=== PATIENT | male | born 1950 | race Caucasian/White ===

== ENCOUNTER 2017-12-23 07:42 | Day surgery (SDC) | payer MEDICARE, OTHER, SELFPAY ==
--- NOTE | 2017-12-20 14:00 | EKG12_ITS ---
Test Reason : PRE-OP Blood Pressure : / mmHG Vent. Rate : 071 BPM Atrial Rate : 071 BPM P-R Int : 142 ms QRS Dur : 086 ms QT Int : 364 ms P-R-T Axes : 057 035 040 degrees QTc Int : 395 ms Normal sinus rhythm Normal ECG Confirmed by BAHMAN DILLON, BRITT ([id number]), news editor CHERY GHOTRA ([id number]) on 12/23/2017 12:03:04 PM Referred By: Ranjit Clark Confirmed By:BRITT RUGGIERO MD
[2017-12-20 14:11] LABS: Hematocrit 41.7 % (40-54); Hemoglobin 14.1 g/dl (13.0-16.5); Mean Corp Hgb Conc 33.8 g/gl (32-36); Mean Corpuscular Hgb 32.6 pg (27.0-32.0); Mean Corpuscular Volume 96.5 fL (80-94); Mean Platelet Vol. 9.2 fl (6.2-12.0); Platelet Count 257 K/mm3 (150-450); RBC Distribution Width CV 12.7 % (11.6-14.6); RBC Distribution Width SD 44.4 fl (35.1-43.9); Red Blood Count 4.32 M/mm3 (4.6-6.2); White Blood Count 5.3 K/mm3 (4.4-11.0)
[2017-12-20 14:13] LABS: Scan Indicated on CBC? Y/N NO
[2017-12-20 14:35] LABS: Anion Gap 10 (5-15); BUN 14 mg/dL (7-18); BUN/Creat Ratio 18.3 RATIO (10-20); Calcium,Total 9.1 mg/dL (8.5-10.1); Chloride 104 mmol/L (98-107); Creatinine, Serum 0.76 mg/dL (0.70-1.30); EST Glomerular Filtration Rate 108 mL/min (>60); Est Glom Filt Rate - Afr Amer 130 mL/min (>60); Glucose 121 mg/dL (74-106); Potassium 4.2 mmol/L (3.5-5.1); Sodium Level 142 mmol/L (136-145)
[2017-12-23] VITALS (8 sets, daily range): BP systolic 105–136; BP diastolic 67–91; PULSE 72–108; RESP 16–18; TEMP 36.3–37.1; O2SAT 84–100; BMI 22.9
--- NOTE | 2017-12-23 09:43 | PCM.HP.STD ---
Problem List (1) Umbilical hernia Status: Acute Qualifiers: Obstruction and gangrene presence: without obstruction or gangrene (2) Left inguinal hernia Status: Acute History of Present Illness Date of Admission: 12/23/17 The patient is a 67 year old M who I saw in the office on November 10, 2017. At that point he presented to me concerned about 2 different hernias. An umbilical hernia and a left inguinal hernia. 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 Having achieved that he is now returning to have his hernias repaired. He has had no change in his health. Past Medical History Medical History: Medical History (Last Updated 11/10/17 @ 14:10 by Wilma Ball) Left inguinal hernia (Acute) K40.90 Umbilical hernia (Acute) K42.9 Anxiety F41.9 Arthritis M19.90 Hyperlipidemia E78.5 Allergies adhesive tape Allergy (Verified 12/16/17 12:57) Rash Home Medications: Ambulatory Orders Medication Instructions Recorded rosuvastatin 10 mg tablet 10 mg PO QDAY 11/10/17 Benazepril HCl [Lotensin] 10 mg PO DAILY 12/16/17 Cholecalciferol (Vitamin D3) 1,000 unit PO DAILY 12/16/17 [Vitamin D3] Escitalopram Oxalate [Lexapro] 10 mg PO DAILY 12/16/17 Multivitamin [Multiple Vitamins] 1 each PO DAILY 12/16/17 Sildenafil Citrate [Viagra] 50 mg PO PRN PRN 12/16/17 Surgical History: Surgical History (Last Reviewed 11/10/17 @ 14:08 by Wilma Ball) H/O carpal tunnel repair Z98.890 H/O colonoscopy Z98.890 H/O hemorrhoidectomy Z98.890 Hand fracture, left S62.92XA Smoking Status: Former smoker Tobacco Use: Pipe Review of Systems Constitutional: Denies: Anorexia Eyes: Denies: Blurred vision HEENT: Denies: Difficulty Hearing Cardiovascular: Denies: Chest Pain Respiratory: Denies: Cough Gastrointestinal: Denies: Abdominal Pain Genitourinary: Denies: Dysuria Musculoskeletal: Denies: Arm Pain Skin: Reports: - - Papular skin rash Neurological: Denies: Balance problems Psychiatric: Denies: Anxiety Endocrine: Denies: Change in Body Habitus Hematologic/ Lymphatic: Denies: Adenopathy VTE Information - Inpt Only VTE Present on Admission: No - Physical Exam General: Alert, Oriented x3, Cooperative HEENT: Atraumatic Oral: Moist Mucosa Neck: Supple Lungs: Clear to auscultation Cardiovascular: Regular rate, Regular Rhythm Abdomen: Bowel Sounds Present, Hernia - Umbilical hernia at the superior aspect the umbilicus partially reducible, - - Left inguinal hernia with testicles descended. Reducible. Right groin has a very slight give with straining. Left groin has diffuse fullness and findings consistent with a sliding hernia Extremities: No clubbing Skin: - - Punctate erythematous rash of the abdomen torso. Markedly diminished in appearance Musculoskeletal: No Tenderness to Palpation of Joints or Extremities Lymphatic: No Cervical, Supraclavicular, or Inguinal Adenopathy Neurological: Cranial nerves II-XII grossly intact Psych/Mental Status: Normal Affect Vital Signs Temp Pulse Resp BP Pulse Ox 98.8 F 74 16 115/83 H 98 12/23/17 08:01 12/23/17 08:01 12/23/17 08:01 12/23/17 08:01 12/23/17 08:01 Oxygen Delivery Method Room Air Weight: 142 lb 3.17 oz Body Mass Index (BMI) 22.9 Assessment/Plan All Active Problems (Last Updated 11/10/17 @ 14:10 by Wilma Ball) Left inguinal hernia (Acute) Umbilical hernia (Acute) I am recommending for the patient a laparoscopic left inguinal herniorrhaphy with mesh. I anticipate an umbilical herniorrhaphy subsequent to the dissection at that site as well. I may utilize mesh at the umbilical site as well. He has had an opportunity to ask and have questions answered. His skin disorder is significantly improved since his office visit and I believe that it is appropriate to his proceed as indicated. He has had an opportunity to ask and have questions answered. We will proceed as noted. Ranjit Clark M.D., F.A.C.S.
--- NOTE | 2017-12-23 09:50 | HERN_PTH ---
PATIENT: ASHLEIGH SUE LOC: [facility] U#:[id number] AGE/SX: 67/M ROOM: RE12/23/[address]: Dr. Ranjit Clark MD : 1950 BED: DIS: 12/23/2017 SPEC #: [id number] RECD: 12/23/17 12:47 STATUS: MILA BENIGNO #: [id number] BEE: 12/23/17 09:[address]: Ranjit Clark DEPT: SURGICAL PATHOLOGY RECD BY: Jace Myers ENTERED: 12/23/17 14:55 SP TYPE: Hernia OTHR DR: Dr. Ronn Shelton DO Tissues: HERNIA Procedures: Surgery Specimen Level II HEADER OPERATION: Laparoscopic left inguinal hernia repair with mesh, umbilical hernia PRE-OP DIAGNOSIS: Left inguinal hernia; umbilical hernia TISSUE SUBMITTED: Umbilical sac and contents MICROSCOPIC DIAGNOSIS Umbilical sac and contents: Mesothelial-lined adipose tissue and fibroconnective tissue consistent with hernia sac and contents. SJ:esvin 12/24/17 MICROSCOPIC DESCRIPTION Slides are reviewed. GROSS DESCRIPTION Received in fixative is one container labeled with the patient's name and designated umbilical sac and contents. The specimen consists of three variable size pieces of yellow adipose tissue measuring in aggregate 4 x 3.5 x 2 cm. Sections reveal yellow adipose cut surfaces without areas of hemorrhage, necrosis or cystic degeneration. No mass lesion is identified. Table Saw Operator sections are submitted in one cassette. / CADENCE:esvin 12/23/17 TC:5 CPT: 91134
--- NOTE | 2017-12-23 10:11 | DCINST_ITS ---
Discharge Diet: Light diet - advance as tolerated - if you have questions about your diet instructions, please talk to you doctor. Discharge Activity: May Not Drive - for 1 week or while taking narcotic pain medicine. May shower in (days): 1 Lifting Restrictions: 10 pounds Call your doctor if your incision/area has: Continuous Slow Oozing, Sudden Increased Bleeding, Increased Pain/ Swelling, Increased Redness, Foul Smelling Discharge Call your doctor if you observe: Fever of 101 or Higher Suture Line Care: Avoid Pulling/Pushing, Avoid Pinching/Bending Additional Dressing/Incision Instructions:: Change or remove dressing in 4 days. Leave steri-strips in place for 1 week. Allergies/Adverse Reactions: Allergies adhesive tape Allergy (Verified 12/16/17 12:57) Rash Medications to take at Discharge rosuvastatin 10 mg tablet 10 mg PO QDAY 11/10/17 Benazepril HCl [Lotensin] 10 mg PO DAILY 12/16/17 Cholecalciferol (Vitamin D3) [Vitamin D3] 1,000 unit PO DAILY 12/16/17 Escitalopram Oxalate [Lexapro] 10 mg PO DAILY 12/16/17 Multivitamin [Multiple Vitamins] 1 each PO DAILY 12/16/17 Sildenafil Citrate [Viagra] 50 mg PO PRN PRN 12/16/17 Hydrocodone Bitart/Apap 5-325 [Ballwin 5MG-325MG] 1 tablet PO Q6H PRN PRN 3 Days # 10 tablet 12/23/17 The following prescriptions were given: Hydrocodone Bitart/Apap 5-325 [Ballwin 5MG-325MG] 1 tablet PO Q6H PRN PRN 3 Days # 10 tablet PRN Reason: Pain Primary Care Physician: Ronn Shelton DO [Primary Care Provider] - Test Results: Test results from this visit will be discussed in further detail at your follow- up appointment, if applicable. Please Follow Up With: Ranjit Clark MD - [phone] When: Call to make an appointment to be seen in about 10 days.
[2017-12-23] MEDS: Bupivacaine Mpf 0.5% 30 ML VIAL OPERA.SITE (11:19)
--- NOTE | 2017-12-23 11:21 | PCM.OPRPT ---
Problem List (1) Umbilical hernia Status: Acute Qualifiers: Obstruction and gangrene presence: without obstruction or gangrene (2) Left inguinal hernia Status: Acute Report of Operation Date of Procedure: 12/23/17 Pre-Operative Diagnosis: Left inguinal hernia and cord lipoma. Umbilical hernia Post-Operative Diagnosis: Indirect left inguinal hernia with cord lipoma. Incarcerated umbilical hernia Surgery/Procedure Performed:: Laparoscopic left inguinal herniorrhaphy. Umbilical herniorrhaphy with 4.3 cm ventral X mesh. The Bard 3D max mesh was lot number [id number] reference #[id number] expiry date 09/18/2022. The ventral X mesh is reference #[id number]. Lot number [id number] CPT 2111. Expiry date 10/19/2019. The secure strap was lot number [id number] with expiry date 09/11/2019 Description of Surgical Findings:: Time out and informed consent was obtained. 67-year-old gentleman was taken out from placement table underwent general endotracheal intubation anesthesia. Ancef 2 g were given intravenously preoperatively. The abdomen was sterilely prepped and draped. 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 0.5% Marcaine was used as a local anesthetic throughout the procedure. A total 21 cc was used. Skin sites were generally pre-anesthetized. A curvilinear incision was made in the inferior aspect of the umbilicus. Sharp dissection carried down through the substance tissue. The umbilical skin was carefully dissected free from the incarcerated preperitoneal fat and umbilical hernia sac. The sac and contents were sharply transected with electrocautery. Holding sutures of 0 Vicryl placed. A 10 mm trocar inserted. 10 lap scope inserted. No evidence of any trocar injuries. Under direct visitation five-minute ports are placed in the right left lower quadrant. The abdomen was rapidly inspected. The right groin appear to be solid and intact. There was evidence of an indirect hernia on the left. Stomach was somewhat insufflated anesthesia was made aware. Superficial inspection of the bowel unremarkable. A ileal inguinal nerve block was performed with Marcaine on the left. The peritoneum was incised carried medially. The peritoneum was completely dissected free. A moderate size cord lipoma was identified it was dissected free and completely delivered from the defect. The direct indirect and femoral area was nicely dissected. A large left Bard 3D max mesh was placed into position and it fit excellently into position. It was secured superiorly and medially with secure strap. Excellent positioning was achieved. The peritoneum was then reapproximated self tube with the secure strap with good obliteration to the mesh. The abdomen was allowed to deflate of the CO2. A 4.3 cm ventral X mesh was placed at the umbilicus. The tails were secured with interrupted 0 Nurolon. The fascia was approximated transversely with interrupted 0 Nurolon. Then the abdomen was reinsufflated. One edge of the mesh was secured with secure strap to assure a flat lie. Good positioning was achieved. The abdomen was allowed to deflate of the CO2. Skin edges were approximated up to 4 Monocryl subdermal stitches. Steri-Strips Telfa and OpSite dressings applied. Sponge and instrument and needle counts were reported to the surgeon be correct. Specimen includes the umbilical hernia sac and contents. Drains none. Blood loss minimal. The patient was taken to the recovery area in satisfactory condition without apparent complication. Ranjit Clark M.D., F.A.C.S. Type of Anesthesia:: General Anesthesiologist: Brice Smith
--- NOTE | 2017-12-23 11:26 | OP.PCM_ITS ---
Problem List (1) Umbilical hernia Status: Acute Qualifiers: Obstruction and gangrene presence: without obstruction or gangrene (2) Left inguinal hernia Status: Acute Report of Operation Date of Procedure: 12/23/17 Pre-Operative Diagnosis: Left inguinal hernia and cord lipoma. Umbilical hernia Post-Operative Diagnosis: Indirect left inguinal hernia with cord lipoma. Incarcerated umbilical hernia Surgery/Procedure Performed:: Laparoscopic left inguinal herniorrhaphy. Umbilical herniorrhaphy with 4.3 cm ventral X mesh. The Bard 3D max mesh was lot number [id number] reference #[id number] expiry date 09/18/2022. The ventral X mesh is reference #[id number]. Lot number HU CPT 2111. Expiry date 10/19/2019. The secure strap was lot number [id number] with expiry date 09/11/2019 Description of Surgical Findings:: Time out and informed consent was obtained. 67-year-old gentleman was taken out from placement table underwent general endotracheal intubation anesthesia. Ancef 2 g were given intravenously preoperatively. The abdomen was sterilely prepped and draped. Ioban draping was utilized as well because of the patient' s dermatitis Grovers disease. 0.5% Marcaine was used as a local anesthetic throughout the procedure. A total 21 cc was used. Skin sites were generally pre-anesthetized. A curvilinear incision was made in the inferior aspect of the umbilicus. Sharp dissection carried down through the substance tissue. The umbilical skin was carefully dissected free from the incarcerated preperitoneal fat and umbilical hernia sac. The sac and contents were sharply transected with electrocautery. Holding sutures of 0 Vicryl placed. A 10 mm trocar inserted. 10 lap scope inserted. No evidence of any trocar injuries. Under direct visitation five-minute ports are placed in the right left lower quadrant. The abdomen was rapidly inspected. The right groin appear to be solid and intact. There was evidence of an indirect hernia on the left. Stomach was somewhat insufflated anesthesia was made aware. Superficial inspection of the bowel unremarkable. A ileal inguinal nerve block was performed with Marcaine on the left. The peritoneum was incised carried medially. The peritoneum was completely dissected free. A moderate size cord lipoma was identified it was dissected free and completely delivered from the defect. The direct indirect and femoral area was nicely dissected. A large left Bard 3D max mesh was placed into position and it fit excellently into position. It was secured superiorly and medially with secure strap. Excellent positioning was achieved. The peritoneum was then reapproximated self tube with the secure strap with good obliteration to the mesh. The abdomen was allowed to deflate of the CO2. A 4.3 cm ventral X mesh was placed at the umbilicus. The tails were secured with interrupted 0 Nurolon. The fascia was approximated transversely with interrupted 0 Nurolon. Then the abdomen was reinsufflated. One edge of the mesh was secured with secure strap to assure a flat lie. Good positioning was achieved. The abdomen was allowed to deflate of the CO2. Skin edges were approximated up to 4 Monocryl subdermal stitches. Steri-Strips Telfa and OpSite dressings applied. Sponge and instrument and needle counts were reported to the surgeon be correct. Specimen includes the umbilical hernia sac and contents. Drains none. Blood loss minimal. The patient was taken to the recovery area in satisfactory condition without apparent complication. Ranjit Clark M.D., F.A.C.S. Type of Anesthesia:: General Anesthesiologist: Brice Smith
[2017-12-23 12:51] LABS: Bedside Glucose 94 mg/dL (70-110)
[2017-12-23] MEDS: HYDROcodone Bitartrate/Apap 5/325 Tablet PO ×2 (13:46→14:36)
== END 2017-12-23 15:24 | disposition home or self-care (01) ==
LOC: SDC 07:43 → AC 07:43
PROVIDERS: Family Provider Student in an Organized Health Care Education/Training Program; PCP Student in an Organized Health Care Education/Training Program; Visit Provider Surgery
PROC: (CPT 49650; principal; 2017-12-23 09:30)
DX: K40.90 Unilateral inguinal hernia, without obstruction or gangrene, not specified as recurrent (principal); D17.6 Benign lipomatous neoplasm of spermatic cord; K42.0 Umbilical hernia with obstruction, without gangrene; I10 Essential (primary) hypertension; E78.5 Hyperlipidemia, unspecified; F41.9 Anxiety disorder, unspecified; M19.90 Unspecified osteoarthritis, unspecified site; L11.1 Transient acantholytic dermatosis [Grover]; Z87.891 Personal history of nicotine dependence; Z79.899 Other long term (current) drug therapy
CPT/HCPCS: 49650; 49653; 36415; 80048; 82962; 85027; 88302; 93005; J7120; C1781

== ENCOUNTER 2024-10-17 13:43 | Emergency (ER) | payer MEDICARE, OTHER, SELFPAY ==
[2024-10-17 13:45] VITALS: BP 114/67; PULSE 68; RESP 16; TEMP 36.9; O2SAT 100; BMI 23.3
[2024-10-17 14:57] LABS: Absolute Neutrophil Count 3.4 X10^3/uL (2.0-7.7); Basophil# 0.03 X10^3/uL; Basophil% 0.6 % (0-1); Eosinophil# 0.07 X10^3/uL; Eosinophils% 1.4 % (0-5); Hematocrit 24.5 % (40-54); Hemoglobin 7.3 g/dL (13.0-16.5); Lymphocyte % 20.5 % (19-41); Mean Corp Hgb Conc 29.8 g/dL (32-36); Mean Corpuscular Volume 73.8 fL (80-94); Mean Platelet Vol. 10.3 fl (6.2-12.0); Monocyte# 0.42 X10^3/uL; Monocyte% 8.6 % (0-10); NRBC Flagged by Analyzer 0 % (0-5); Neutrophil # 3.35 X10^3/uL (2.7-7.7); Neutrophil % 68.7 % (47-70); Platelet Count 321 K/mm3 (150-450); RBC Distribution Width CV 18.2 % (11.6-14.6); RBC Distribution Width SD 48.5 fl (35.1-43.9); Red Blood Count 3.32 M/mm3 (4.6-6.2); White Blood Count 4.9 K/mm3 (4.4-11.0)
--- NOTE | 2024-10-17 15:07 | EDS_ITS ---
HPI History of Present Illness Chief Complaint: Abn Labs Informant: patient Narrative Narrative: Patient is a 74-year-old male presenting to the ER for evaluation of low hemoglobin level on routine outpatient labs and was told he needs a blood transfusion. Patient denies any symptoms. He states he last had blood work done 6 months ago and everything was normal. His hemoglobin today was 7.6 and he was sent to the emergency room. For the past year he has felt that he has had some brain fog he has some chronic back pain associated severe spinal stenosis but denies any other complaints. He does note that about 6 months ago he had stool that was occult positive for blood however no workup was done because he had a lot of other things going on again. He did have it checked again and then it was normal. He gets colonoscopies every 3 years and is due for 1 this year. He states he gets them frequently because of polyps. He denies any black or blood in his stool. Denies any lightheadedness or dizziness. Denies any unintentional weight loss or night sweats. Denies any exercise intolerance or shortness of breath. Denies any blood in his urine. No other complaints or concerns reported at this time. He denies any symptoms of indigestion. He states he does take meloxicam as needed but tries not to take it too much. He is not on any blood thinners. [facility] Medical History Spinal stenosis Left inguinal hernia Umbilical hernia Hyperlipidemia Anxiety Arthritis Home Medications ?Medication ?Instructions ?Recorded ?Last Taken ?Type benazepril 5 mg tablet 10 mg PO DAILY 12/16/17 08/0 07/11 History multivitamin 1 ea PO DAILY 12/16/17 Unkno wn History ferrous gluconate 324 mg (38 mg 324 mg PO TID #90 tabs 10/17/24 Unknown Rx iron) tablet meloxicam 15 mg tablet 15 mg PO DAILY PRN pain 09/22 12/15 Unknown History metoprolol tartrate 25 mg tablet 25 mg PO BID 10/17/24 Unknown History rosuvastatin 5 mg tablet 5 mg PO DAILY 10/17/24 Unkno wn History Allergy/AdvReac Type Severity Reaction Status Date / Time adhesive tape Allergy Rash Verified 10/17/24 13:46 Surgical History s/p left inguinal hernia repair and umbilical (~12/2017) H/O colonoscopy Hand fracture, left H/O carpal tunnel repair H/O hemorrhoidectomy Social History Smoking Status: Former smoker alcohol intake: current alcohol intake frequency: 0-2 drinks per day ROS ROS ED Constitutional Constitutional ED: Denies chills, fever(s), sweats or weight loss Cardiovascular Cardiovascular: Denies chest pain Respiratory/Chest Respiratory/Chest: Denies cough, dyspnea or dyspnea on exertion Gastrointestinal Gastrointestinal: Denies abdominal pain, melena, nausea or vomiting Genitourinary Genitourinary ED: Denies dysuria or hematuria Musculoskeletal Musculoskeletal: Reports other Details: chronic back pain, no acute ; Denies arthralgias or myalgias Integumentary Denies Abrasions or rash Neurologic Neurologic: Denies weakness Hematologic/Lymphatic Hematologic/Lymphatic: Denies easy bleeding or easy bruising EXAM Physical Exam Const Vital Signs: 10/17/24 13:45 10/17/24 14:42 10/17/24 16:12 Temperature 98.5 F Temperature Source Oral Pulse Rate 68 Pulse Rate [Lying] 60 Pulse Rate [Sitting (for 1 minute prior to obtaining)] 65 Pulse Rate [Standing (for 1 minute prior to obtaining)] 68 Respiratory Rate 16 Respiratory Effort Normal Respiratory Pattern Normal Blood Pressure 114/67 Blood Pressure [Lying] 130/80 H Blood Pressure [Sitting (for 1 minute prior to obtaining)] 135/78 H Blood Pressure [Standing (for 1 minute prior to obtaining)] 122/83 H Blood Pressure Mean 82 Blood Pressure Mean [Lying] 96 Blood Pressure Mean [Sitting (for 1 minute prior to obtaining)] 97 Blood Pressure Mean [Standing (for 1 minute prior to obtaining)] 96 Pulse Ox 100 Oxygen Delivery Method Room Air 10/17/24 16:18 Temperature Temperature Source Pulse Rate 60 Pulse Rate [Lying] Pulse Rate [Sitting (for 1 minute prior to obtaining)] Pulse Rate [Standing (for 1 minute prior to obtaining)] Respiratory Rate 16 Respiratory Effort Respiratory Pattern Blood Pressure 130/80 H Blood Pressure [Lying] Blood Pressure [Sitting (for 1 minute prior to obtaining)] Blood Pressure [Standing (for 1 minute prior to obtaining)] Blood Pressure Mean 96 Blood Pressure Mean [Lying] Blood Pressure Mean [Sitting (for 1 minute prior to obtaining)] Blood Pressure Mean [Standing (for 1 minute prior to obtaining)] Pulse Ox 99 Oxygen Delivery Method Room Air Positive well nourished and well developed General Appearance ED: well developed and NAD; Negative for pallor HEENT Reports moist mucous membranes Eyes PERRL General Eye ED: Yes pale conjunctiva Neck supple and no JVD Chest Wall inspection of chest normal and palpation of chest normal Resp normal respiratory effort and clear to auscultation bilaterally Cardio regular rate, regular rhythm and no murmurs GI normal to inspection, nondistended, normoactive bowel sounds and non-tender Extremity normal to inspection General Extremety ED: Negative for edema General Extremity: Negative for edema Neuro oriented x3 Sensorium / Orientation: alert Motor Exam: Negative for general weakness Psych mental status grossly normal Skin no rashes or lesions noted and no wounds General Skin Exam: Negative for pallor MDM MDM MDM Narrative Medical decision making narrative: Patient evaluated for asymptomatic anemia found on outpatient labs. He states he previously had a normal hemoglobin. Protocol CBC and CMP placed. Will obtain fecal occult in case this is an occult GI bleed and touch base with patient's PCP. Patient does have anemia with a hemoglobin of 7.3. Is microcytic in nature. He does not have a thrombocytopenia leukopenia. CMP normal with no elevation of his BUN. Digital rectal exam shows a scant amount of brown stool. This is chaperoned by nursing staff. It is Hemoccult negative. I spoke with Dr. Sutherland who tells me that with nausea patient's hemoglobin is 13.7. Does admit he has not seen the patient recently so he wanted him to come to the ER to make sure he was stable in case he did need a blood transfusion. We did discuss the case and he is agreeable with need for not giving blood transfusion at this time especially as he is asymptomatic his hemoglobin is above 7. I did add on further studies per his request to aid in the workup of his anemia. Patient be started on iron supplementation. On repeat evaluation patient remains hemodynamically stable with no acute complaints. Orthostatics are negative. He does tell me that he has been taking iron supplements in the past but had stopped because his iron got too high. Patient counseled on continued outpatient workup. He is agreeable to plan of care. Given return precautions. Discharged home in stable condition. Lab Data Attestation: I reviewed the patient's lab results. Labs: Laboratory Results - last 24 hr 10/17/24 13:56 WBC 4.9 RBC 3.32 L Hgb 7.3 L Hct 24.5 L MCV 73.8 L MCH 22.0 L MCHC 29.8 L RDW Std Deviation 48.5 H RDW Coeff of Misti 18.2 H Plt Count 321 MPV 10.3 Immature Gran % (Auto) 0.200 Neut % (Auto) 68.7 Lymph % (Auto) 20.5 [place] % (Auto) 8.6 Eos % (Auto) 1.4 Baso % (Auto) 0.6 Absolute Neuts (auto) 3.4 Absolute Lymphs (auto) 1.00 Nucleated RBC % 0 Sodium 137 Potassium 4.3 Chloride 102 Carbon Dioxide 23.5 Anion Gap 12 BUN 18 Creatinine 0.93 Estim Creat Clear Calc 59.70 Est GFR (MDRD) Non-Af 85 BUN/Creatinine Ratio 19.4 Glucose 108 H Calcium 9.2 Total Bilirubin 0.31 AST 22 ALT 16 Alkaline Phosphatase 71 Total Protein 6.8 Albumin 4.5 Globulin 2.3 Albumin/Globulin Ratio 2.0 Management Discussion w/another healthcare provider: PCP Discharge Plan Triage Chief Complaint: Abn Labs ED Provider: Lizzette Le Dx/Rx/DC Orders Clinical Impression: Microcytic anemia Prescriptions: New ferrous gluconate 324 mg (38 mg iron) tablet 324 mg PO TID Qty: 90 0RF No Action multivitamin 1 EACH tablet 1 ea PO DAILY benazepril 5 MG tablet 10 mg PO DAILY rosuvastatin 5 mg tablet 5 mg PO DAILY meloxicam 15 mg tablet 15 mg PO DAILY PRN (Reason: pain) metoprolol tartrate 25 mg tablet 25 mg PO BID Primary Care Provider: Tor Sutherland Referrals: Ronn Shelton DO [Non-Staff] - Activity Restrictions/Additional Instructions: Please follow-up with your primary care doctor for further outpatient workup of your anemia. I would recommend avoiding NSAID such as aspirin, ibuprofen or meloxicam until cleared by your primary care doctor. Take Tylenol as needed for breakthrough pain. If you start to feel lightheaded, get short of breath with exertion or have new symptoms please do not hesitate to return to the emergency room. At this time your anemia seems stable and does not require an emergent blood transfusion. Print Language: Vietnamese Disposition Disposition: Home, Self Care
[2024-10-17 15:11] LABS: AST(SGOT) 22 U/L (<=37); Alanine Aminotransfer ALT/SGPT 16 U/L (<=46); Albumin, Serum 4.5 g/dL (3.4-4.8); Alkaline Phosphatase 71 U/L (40-129); Anion Gap 12 (5-15); BUN 18 mg/dL (4-19); BUN/Creat Ratio 19.4 RATIO (10-20); Calcium,Total 9.2 mg/dL (7.6-11.0); Carbon Dioxide 23.5 mmol/L (21.0-32.0); Chloride 102 mmol/L (98-108); Creatinine, Serum 0.93 mg/dL (0.70-1.20); EST Glomerular Filtration Rate 85 (>60); Globulin 2.3 g/dL (2.2-4.2); Glucose 108 mg/dL (70-99); Potassium 4.3 mmol/L (3.3-5.1); Protein, Total 6.8 g/dL (5.9-8.4); Sodium Level 137 mmol/L (133-145); Total Bilirubin 0.31 mg/dL (0.00-1.30)
[2024-10-17 16:12] VITALS: BP 122/83; BP 130/80; BP 135/78; PULSE 60; PULSE 65; PULSE 68
[2024-10-17 16:18] VITALS: BP 130/80; PULSE 60; RESP 16; O2SAT 99
[2024-10-17 16:40] LABS: Ferritin 13 ng/mL (37-417); Iron Binding Capacity,Unsat 308 ug/dL (228-428); Vitamin B12 900 pg/mL (180-914)
[2024-10-17 16:48] VITALS: BP 132/84; PULSE 76; RESP 16; O2SAT 98
[2024-10-17 16:52] LABS: Iron 115 ug/dL (65-175)
== END 2024-10-17 16:56 | disposition home or self-care (01) ==
PROVIDERS: Emergency Medicine; Emergency Provider Emergency Medicine; PCP Family Medicine; Visit Provider Emergency Medicine
DX: D50.9 Iron deficiency anemia, unspecified (principal); E78.5 Hyperlipidemia, unspecified; Z87.891 Personal history of nicotine dependence; Z79.899 Other long term (current) drug therapy
CPT/HCPCS: 80053; 82274; 82607; 82728; 82746; 83540; 83550; 85025; 99284; A4216